=== PATIENT | female | born 1995 | race African-American/Black ===

== ENCOUNTER 2021-05-24 23:51 | Emergency (ER) | payer SELFPAY ==
[~2021-05-24] VITALS: Ht 162.6 cm; Wt 46.3 kg
[2021-05-25] MEDS ORDERED: MUPIROCIN22 GM TOP (00:27)
== END 2021-05-25 01:30 | disposition home or self-care (01) ==
LOC: ER 23:56
DX: L73.8 Other specified follicular disorders (principal)
CPT/HCPCS: 99282